=== PATIENT | male | born 1970 | race African-American/Black ===

== ENCOUNTER 2021-07-30 07:18 | Emergency (ER) | payer MEDICAID ==
[~2021-07-30] VITALS: Ht 182.9 cm; Wt 82.0 kg
[2021-07-30] MEDS ORDERED: PHENYLEPHRINE 100MCG/ML 10ML VIAL (CATH LAB) IV PRN (08:00)
[2021-07-30] MEDS ORDERED: MORPHINE SULFATE 10 MG/ML CPJ IM ONE (08:30)
[2021-07-30] MEDS ORDERED: OXYCODONE HCL/ACETAMINOPHEN 5/325MG TABLET PO ONE (08:30)
[2021-07-30] MEDS ORDERED: LIDOCAINE HCL 1% 20ML VIAL (Pyxis) INJ INFIL ONE (08:45)
[2021-07-30] MEDS ORDERED: ACETAMINOPHEN 325MG TABLET PO ONE (10:00)
[2021-07-30 11:00] VITALS: BP 160/98
[2021-07-30] MEDS ORDERED: CEPH500T MT (11:10)
[2021-07-30] MEDS ORDERED: MUPI1OIN4 TP (11:10)
== END 2021-07-30 11:06 | disposition home or self-care (01) ==
LOC: ER 07:18
DX: N48.30 Priapism, unspecified (principal)
CPT/HCPCS: 96372; 96374; 99283; J2270; J3490; Z7610